=== PATIENT | female | born 1940 | race Caucasian/White ===

== ENCOUNTER 2017-07-28 11:56 | Day surgery (SDC) | payer MEDICARE, OTHER ==
[2017-07-28] MEDS ORDERED: Sodium Chloride 0.9% 5 ML Syringe FLUSH PRN (12:00)
[2017-07-28] MEDS ORDERED: Lactated Ringers 1,000 ML IV SCH (12:00)
[2017-07-28] MEDS ORDERED: Gatifloxacin 0.5% Ophth Soln 2.5 ML Bot EYELF SCH (12:00)
[2017-07-28] MEDS: Phenylephrine 10% Ophth Soln 5 ML Bot EYELF SCH ×3 (12:18→12:47)
[2017-07-28] MEDS: Cyclopentolate 1% Opth Soln 2 ML Bottle EYELF SCH ×3 (12:26→12:52)
[2017-07-28] MEDS ORDERED: Midazolam 1 MG/ML 2 ML SDV ONE (13:33)
[2017-07-28] MEDS ORDERED: fentaNYL 100 MCG/2 ML SDV IV ONE (13:39)
[2017-07-28] MEDS ORDERED: Midazolam 1 MG/ML 2 ML SDV IV ONE (13:39)
[2017-07-28] MEDS ORDERED: fentaNYL 100 MCG/2 ML SDV ONE (13:40)
[2017-07-28] MEDS ORDERED: Balanced Salt Solution Plus Ophth Irrig 500 ML Bottle IOCULAR ONE (13:47)
[2017-07-28] MEDS ORDERED: Balanced Salt Solution Ophth Irrig 15 ML Bottle EYELF ONE (13:47)
[2017-07-28] MEDS ORDERED: Water For Irrigation,Sterile 1,500 ML Container IRR ONE (13:47)
[2017-07-28] MEDS ORDERED: Carbachol 0.01% Intraocular 1.5 ML Vial EYELF ONE (13:48)
[2017-07-28] MEDS ORDERED: Hyaluronate Sodium 1% 0.85 ML Syringe IOCULAR ONE (13:49)
[2017-07-28] MEDS ORDERED: Dexamethasone/Neomycin/Polymyxin B Ophth Oint 3.5 GM Tube EYELF ONE (13:49)
--- NOTE | 2017-07-29 08:20 | OR ---
DATE OF SURGERY: 07/28/2017 SURGEON: Adam Holcomb MD PREOPERATIVE DIAGNOSIS: Cataract, left eye. POSTOPERATIVE DIAGNOSIS: Cataract, left eye. OPERATION PERFORMED: Phacoemulsification with posterior chamber lens insertion, left eye. FINDINGS: OPERATIVE PROCEDURE: The patient was taken to the operating room where appropriate anesthesia, sedation and monitoring were provided. The eye and eyelids were then prepped and draped in the usual sterile manner. A lid speculum was placed. A micro sharp blade was used to enter the anterior chamber inferior-temporally and through this site Healon was irrigated into the eye. Then using a 2.85 mm corneal blade an incision was made at the limbus temporally. Additional Healon was irrigated into the eye and then using a cystitome, the anterior capsulorrhexis was created. The lens nucleus was hydrodissected using a 27 gauge cannula and balanced salt solution. The phacoemulsification unit was introduced through the temporal site and the Srikanth spatula through the inferior temporal site. In so doing, the lens nucleus was phacoemulsified. The cortical fragments of the lens were removed using the irrigation aspiration unit. The posterior capsule was polished. Healon was irrigated into the eye. The posterior chamber lens was then inserted and rotated into position inside the capsular bag. The Healon was irrigated out of the eye. Miostat was irrigated into the eye and the pupil rounded nicely. A single interrupted 10-0 Nylon suture was placed through the temporal corneal incision site. Balanced salt solution was irrigated into the eye. The wound was tested and it was found to be appropriately tight. Maxitrol ointment was placed into the patient's left eye. The eyelids were closed and an eye patch and fair shield were placed. The patient left the operating room in good condition. /[id number]/MODL
== END 2017-07-28 15:16 | disposition home or self-care (01) ==
LOC: KA.SDS 11:56
PROVIDERS: ATTEND Ophthalmology
DX: H25.012 Cortical age-related cataract, left eye (principal); I10 Essential (primary) hypertension; E78.4 Other hyperlipidemia; M17.12 Unilateral primary osteoarthritis, left knee; E66.9 Obesity, unspecified; Z68.36 Body mass index [BMI] 36.0-36.9, adult; Z90.89 Acquired absence of other organs; Z90.710 Acquired absence of both cervix and uterus; Z98.890 Other specified postprocedural states; Z79.82 Long term (current) use of aspirin; Z79.899 Other long term (current) drug therapy; Z88.4 Allergy status to anesthetic agent; Z88.5 Allergy status to narcotic agent; Z88.6 Allergy status to analgesic agent; Z88.8 Allergy status to other drugs, medicaments and biological substances; Z91.041 Radiographic dye allergy status
CPT/HCPCS: 66984; A9270; J2250; J3010; J7120; 00142; C1780

== ENCOUNTER 2017-09-22 11:18 | Day surgery (SDC) | payer MEDICARE, OTHER ==
[~2017-09-22 11:18] MED LIST: Gatifloxacin 0.5% Ophth Soln 2.5 ML Bot EYERT SCH; Lactated Ringers 1,000 ML IV SCH; Sodium Chloride 0.9% 5 ML Syringe FLUSH PRN
[2017-09-22] MEDS: Cyclopentolate 1% Opth Soln 2 ML Bottle EYERT SCH ×3 (11:36→12:09)
[2017-09-22] MEDS ORDERED: Midazolam 1 MG/ML 2 ML SDV ONE (11:44)
[2017-09-22] MEDS ORDERED: fentaNYL 100 MCG/2 ML SDV ONE (11:44)
[2017-09-22] MEDS: Phenylephrine 10% Ophth Soln 5 ML Bot EYERT SCH ×3 (11:46→12:19)
[2017-09-22] MEDS ORDERED: fentaNYL 100 MCG/2 ML SDV IV ONE (12:45)
[2017-09-22] MEDS ORDERED: Midazolam 1 MG/ML 2 ML SDV IV ONE (12:45)
[2017-09-22] MEDS ORDERED: Water For Irrigation,Sterile 1,500 ML Container IRR ONE (13:01)
[2017-09-22] MEDS ORDERED: Balanced Salt Solution Plus Ophth Irrig 500 ML Bottle IOCULAR ONE (13:02)
[2017-09-22] MEDS ORDERED: Carbachol 0.01% Intraocular 1.5 ML Vial EYERT ONE (13:02)
[2017-09-22] MEDS ORDERED: EPINEPHrine 1 MG/ML SDV ONE (13:02)
[2017-09-22] MEDS ORDERED: Balanced Salt Solution Ophth Irrig 15 ML Bottle EYERT ONE (13:02)
[2017-09-22] MEDS ORDERED: Dexamethasone/Neomycin/Polymyxin B Ophth Oint 3.5 GM Tube EYERT ONE (13:03)
[2017-09-22] MEDS ORDERED: Tetracaine HCl/PF 0.5% 4 ML Bottle EYEBOTH ONE (13:03)
[2017-09-22] MEDS ORDERED: Hyaluronate Sodium 1% 0.85 ML Syringe IOCULAR ONE (13:03)
--- NOTE | 2017-09-23 08:46 | OR ---
DATE OF SURGERY: 09/22/2017 SURGEON: Adam Holcomb MD PREOPERATIVE DIAGNOSIS: Cataract, right eye. POSTOPERATIVE DIAGNOSIS: Cataract, right eye. OPERATION PERFORMED: Phacoemulsification with posterior chamber lens insertion, right eye. HISTORY: The patient is having more and more difficulty seeing to drive using the right eye. She has a combined-type cataract, also listed a senile. Her vision for the right eye is 20/50. FINDINGS: The patient was taken to the operating room where appropriate anesthesia, sedation and monitoring were provided. The eye and eyelids were then prepped and draped in the usual sterile manner. A lid speculum was placed. A micro sharp blade was used to enter the anterior chamber inside the limbus superior-temporally. Xylocaine was irrigated into the eye at this site. Healon was irrigated into the eye through this site. Then using a 2.85 mm corneal blade an entry was made into the anterior chamber just inside the limbus temporally. Healon was again irrigated into the eye. Then using a cystitome, the anterior capsulorrhexis was created. The lens nucleus was hydrodissected using a 27-gauge cannula and balanced salt solution. The phacoemulsification unit was introduced through the temporal site and the Srikanth spatula through the superior temporal site. In so doing, the lens nucleus was phacoemulsified. The cortical fragments of the lens were removed using the irrigation aspiration unit. The posterior capsule was polished. Healon was irrigated into the eye. The posterior chamber lens was inserted and rotated into position inside the capsular bag. The Healon was irrigated out of the eye. Miostat was irrigated into the eye and the pupil rounded nicely. A single interrupted 10-0 Nylon suture was placed through the temporal corneal incision site. Balanced salt solution was irrigated into the eye. The wound was tested and found to be tight. Maxitrol ointment was placed into the patient's right eye. The eyelids were closed and an eye patch and fair shield were placed. The patient left the operating room in good condition. /[id number]/MODL
== END 2017-09-22 13:45 | disposition home or self-care (01) ==
LOC: KA.SDS 11:18
PROVIDERS: ATTEND Ophthalmology
DX: H25.811 Combined forms of age-related cataract, right eye (principal); I10 Essential (primary) hypertension; E78.5 Hyperlipidemia, unspecified; E66.9 Obesity, unspecified; Z79.82 Long term (current) use of aspirin; Z79.899 Other long term (current) drug therapy; Z88.8 Allergy status to other drugs, medicaments and biological substances; Z91.041 Radiographic dye allergy status; Z68.30 Body mass index [BMI] 30.0-30.9, adult
CPT/HCPCS: 66984; A9270; C1780; J0171; J2250; J3010; J7120; 00142

== ENCOUNTER 2017-12-26 23:48 | Observation (INO) | payer MEDICARE, OTHER ==
[2017-12-27] MEDS ORDERED: Sodium Chloride 0.9% 5 ML Syringe FLUSH PRN (00:10)
[2017-12-27] MEDS ORDERED: Diltiazem 25 MG/5 ML SDV IVPUSH ONE ×2 (00:16→00:44)
--- NOTE | 2017-12-27 00:23 | EDM.PDOC ---
ED HPI GENERAL MEDICAL PROBLEM - General Chief Complaint: Cardiovascular Problem Stated Complaint: Irregular heart rate Time Seen by Provider: 12/27/17 00:05 Source of Information: Reports: Patient History Limitations: Reports: No Limitations - History of Present Illness INITIAL COMMENTS - FREE TEXT/NARRATIVE: Patient presents with palpitations that she noticed when she laid down in bed tonight. No fever, chest, arm, neck or jaw pain. She denies any history of A Fib, [place] or stents. She takes Diovan for blood pressure and years ago had been on Nadolol but it built up a toxicity in her system and it was stopped when her heart rate was 30. - Related Data Allergies Allergy/AdvReac Type Severity Reaction Status Date / Time celecoxib [From Celebrex] Allergy KIDNEY Verified 12/27/17 00:00 latex Allergy Blisters Verified 12/27/17 00:00 lidocaine [From Xylocaine] Allergy DECREASES Verified 12/27/17 00:00 BLOOD PRESSURE meperidine [From Demerol] Allergy Nausea and Verified 12/27/17 00:00 Vomiting nadolol [From Corgard] Allergy UNKNOWN Verified 12/27/17 00:00 contrast dye Allergy Confusion Uncoded 07/27/17 15:55 Home Meds: Home Meds Aspirin 325 mg PO DAILY 07/27/17 [History] Calcium Carbonate/Vitamin D3 [Calcium Carb 500 MG] 1 each PO DAILY 07/27/17 [ History] Cartilage/Collagen/Bor/Hyalur [Joint Health Tablet] 1 each PO DAILY 07/27/17 [ History] Cholecalciferol (Vitamin D3) [Cholecalciferol] 2,000 mg PO DAILY 07/27/17 [ History] Cyanocobalamin (Vitamin B-12) [Vitamin B-12] 250 mcg PO DAILY 07/27/17 [History] Furosemide [Lasix] 1 tab PO DAILY 07/27/17 [History] Ibuprofen/Diphenhydramine HCl [Advil Pm Liqui-Gels] 1 each PO BEDTIME 07/27/17 [ History] Lutein 6 mg PO DAILY 07/27/17 [History] Multivitamin with Minerals [Multiple Vitamin] 1 tab PO DAILY 07/27/17 [History] Napoleon-3 Fatty Acids [Napoleon-3] 2 cap PO DAILY 07/27/17 [History] Pravastatin Sodium [Pravastatin (Pravachol)] 40 mg PO DAILY 07/27/17 [History] Trolamine Salicylate [Arthricream] 90 gm TOP BID 07/27/17 [History] Ubidecarenone [Coenzyme Q10] 30 mg PO DAILY 07/27/17 [History] Valsartan [Diovan] 160 mg PO DAILY 07/27/17 [History] Past Medical History HEENT History: Reports: Cataract, Impaired Vision Cardiovascular History: Reports: High Cholesterol, Hypertension Gastrointestinal History: Reports: GERD Genitourinary History: Reports: Other (See Below) Other Genitourinary History: cyst on left kidney [employer] History: Reports: Musculoskeletal History: Reports: Arthritis Endocrine/Metabolic History: Reports: Obesity/BMI 30+ - Infectious Disease History Infectious Disease History: Reports: Measles, Mumps - Past Surgical History HEENT Surgical History: Reports: Cataract Surgery, Tonsillectomy Cardiovascular Surgical History: Reports: None GI Surgical History: Reports: Colonoscopy Female Surgical History: Reports: Hysterectomy Other Female Surgeries/Procedures: partial Endocrine Surgical History: Reports: None Musculoskeletal Surgical History: Reports: Arthroscopic Knee Social & Family History - Tobacco Use Smoking Status *Q: Never Smoker - Caffeine Use Caffeine Use: Reports: Coffee, Soda, Tea Other Caffeine Use: regular - Recreational Drug Use Recreational Drug Use: No ED ROS GENERAL - Review of Systems Review Of Systems: See Below Constitutional: Denies: Fever, Malaise, Weakness HEENT: Denies: Ear Pain, Throat Pain, Vision Change Respiratory: Denies: Shortness of Breath, Cough Cardiovascular: Denies: Chest Pain, Lightheadedness, Syncope Endocrine: Denies: Fatigue GI/Abdominal: Denies: Abdominal Pain, Nausea, Vomiting : Denies: Dysuria, Flank Pain, Frequency Musculoskeletal: Reports: Back Pain (she had a brief pain in the middle of the back earlier this evening but quickly resolved). Denies: Neck Pain, Shoulder Pain, Arm Pain Skin: Denies: Cyanosis, Jaundice, Mottled, Pallor, Diaphoresis Neurological: Denies: Confusion, Dizziness, Headache, Seizure, Syncope, Trouble Speaking, Difficulty Walking Psychiatric: Denies: Agitation, Anxiety, Confusion ED EXAM, GENERAL - Physical Exam Exam: See Below Exam Limited By: No Limitations General Appearance: Alert, WD/WN, No Apparent Distress Eye Exam: Bilateral Eye: EOMI, Normal Inspection, PERRL Ears: Normal External Exam, Hearing Grossly Normal Nose: Normal Inspection, No Blood Throat/Mouth: Normal Inspection, Normal Lips, Normal Voice, No Airway Compromise Head: Atraumatic, Normocephalic Neck: Normal Inspection, Supple, Full Range of Motion Respiratory/Chest: No Respiratory Distress, Lungs Clear, Normal Breath Sounds, No Accessory Muscle Use Cardiovascular: Normal Peripheral Pulses, No Edema, No Gallop, Tachycardia, Irregularly Irregular Peripheral Pulses: 2+: Carotid (L), Carotid (R), Radial (L), Radial (R), Dorsalis Pedis (L), Dorsalis Pedis (R) GI/Abdominal: Normal Bowel Sounds, Soft, Non-Tender, No Organomegaly, No Distention Back Exam: No: CVA Tenderness (L), CVA Tenderness (R) Extremities: Normal Inspection, Normal Range of Motion, Non-Tender, No Pedal Edema Neurological: Alert, Oriented, Normal Cognition, No Motor/Sensory Deficits Psychiatric: Normal Affect, Normal Mood Skin Exam: Warm, Dry, Intact, Normal Color, No Rash Course - Vital Signs Last Recorded V/S: Last Vital Signs Temp 96.3 F 12/27/17 02:23 Pulse 97 12/27/17 02:23 Resp 18 12/27/17 02:23 BP 123/80 12/27/17 02:23 Pulse Ox 94 L 12/27/17 02:23 - Orders/Labs/Meds Orders: Active Orders 24 hr Category Date Time Status Patient Status Manage Transfer [TRANSFER] Routine ADT 12/27/17 02:21 Ordered Patient Status [ADT] AM ADT 12/27/17 05:11 Ordered Labs: Laboratory Tests 12/27/17 12/27/17 Range/Units 00:10 00:10 WBC 11.5 H (5.0-10.0) 10^3/uL RBC 5.30 (3.80-5.50) 10^6/uL Hgb 15.9 (12.0-16.0) g/dL Hct 48.6 H (37.0-47.0) % MCV 91.7 (82.0-92.0) fL MCH 30.1 (27.0-31.0) pg MCHC 32.8 (32.0-36.0) g/dL RDW 12.3 (11.5-14.5) % Plt Count 270 (150-300) 10^3/uL MPV 7.8 (7.4-10.4) fL Neut % (Auto) 51.7 (50.0-70.0) % Lymph % (Auto) 33.1 (20.0-40.0) % Atlantic % (Auto) 8.9 H (2.0-8.0) % Eos % (Auto) 2.6 (1.0-3.0) % Baso % (Auto) 3.7 H (0.0-1.0) % Neut # (Auto) 6.0 (2.5-7.0) 10^3/uL Lymph # (Auto) 3.8 (1.0-4.0) 10^3/uL Atlantic # (Auto) 1.0 H (0.1-0.8) 10^3/uL Eos # (Auto) 0.3 (0.1-0.3) 10^3/uL Baso # (Auto) 0.4 H (0.0-0.1) 10^3/uL Sodium 142 (136-145) mmol/L Potassium 3.9 (3.3-5.3) mmol/L Chloride 105 (98-115) mmol/L Carbon Dioxide 26.5 (21.0-32.0) mmol/L BUN 21 (6-25) mg/dL Creatinine 0.78 (0.51-1.17) mg/dL Est Cr Clr Drug Dosing 47.03 mL/min Estimated GFR (MDRD) > 60 mL/min Glucose 108 (70-110) mg/dL Calcium 9.6 (8.7-10.3) mg/dL Meds: Medications Discontinued Medications Generic Name Dose Route Start Last Admin Trade Name Freq PRN Reason Stop Dose Admin Diltiazem HCl 20 mg 12/27/17 00:16 12/27/17 00:24 Diltiazem IVPUSH 12/27/17 00:17 20 mg ONETIME ONE Administration Diltiazem HCl 25 mg 12/27/17 00:44 12/27/17 00:45 Diltiazem IVPUSH 12/27/17 00:45 25 mg ONETIME ONE Administration Sodium Chloride 1,000 mls @ 999 mls/hr 12/27/17 00:48 12/27/17 00:53 Normal Saline IV 12/27/17 01:48 999 mls/hr .BOLUS ONE Administration Metoprolol Tartrate 5 mg 12/27/17 01:20 12/27/17 01:23 Lopressor IVPUSH 12/27/17 01:21 5 mg ONETIME ONE Administration Metoprolol Tartrate Confirm 12/27/17 01:21 12/27/17 01:38 Lopressor Administered 12/27/17 01:22 Not Given Dose 5 mg .ROUTE .STK-MED ONE Metoprolol Tartrate 5 mg 12/27/17 01:38 12/27/17 01:41 Lopressor IVPUSH 12/27/17 01:39 5 mg ONETIME ONE Administration Metoprolol Tartrate 5 mg 12/27/17 01:55 12/27/17 01:59 Lopressor IVPUSH 12/27/17 01:56 5 mg ONETIME ONE Administration Metoprolol Tartrate 25 mg 12/27/17 02:17 12/27/17 02:18 Lopressor PO 12/27/17 02:18 25 mg ONETIME ONE Administration Metoprolol Tartrate Confirm 12/27/17 02:16 Lopressor Administered 12/27/17 02:17 Dose 50 mg .ROUTE .STK-MED ONE - Re-Assessments/Exams Free Text/Narrative Re-Assessment/Exam: 12/27/17 00:44 Heart rate was about 150 when we administered Diltiazem 20 mg IVP. Within a couple of minutes it came down to 120-135 but then stabilized 135-140. After 15 minutes we are now giving second dose at 25 mg IVP. 12/27/17 01:21 Nearly 40 minutes after second dose of Diltiazem the heart rate is still in the 125-140 range. IV dosing is onset within 3 minutes so we should be at full effect. The goal is to get rate into the 80's. Blood pressure is still 150's systolic. Will give Metoprolol 5 mg IVP now. 12/27/17 02:24 Heart rate came down to 80's to 120's after 3 doses of Metoprolol 5 mg IVP. Blood pressure down nicely as well. Blood pressure has dropped from 204/67 to 122/66 and HR 156 to 97. Patient is feeling better. Discussed case with ERIKA Garcia who accepted for observation admission. Patient remained stable throughout ER course. Departure - Departure Time of Disposition: 02:17 Disposition: Refer to Observation Condition: Good Clinical Impression: New onset atrial fibrillation, Atrial fibrillation with RVR Forms: ED Department Discharge - My Orders Last 24 Hours: My Active Orders 12/27/17 02:21 Patient Status Manage Transfer [TRANSFER] Routine 12/27/17 05:11 Patient Status [ADT] AM - Assessment/Plan Last 24 Hours: My Active Orders 12/27/17 02:21 Patient Status Manage Transfer [TRANSFER] Routine 12/27/17 05:11 Patient Status [ADT] AM
[2017-12-27 00:44] LABS: CHLORIDE,CL 105 mmol/L (98-115); SODIUM,NA 142 mmol/L (136-145)
[2017-12-27] MEDS ORDERED: Sodium Chloride 0.9% 1,000 ML IV ONE (00:48)
[2017-12-27] MEDS ORDERED: Metoprolol Tartrate 5 MG/5 ML SDV IVPUSH ONE ×3 (01:20→01:55)
[2017-12-27] MEDS ORDERED: Metoprolol Tartrate 5 MG/5 ML SDV ONE (01:21)
[2017-12-27] MEDS ORDERED: Metoprolol Tartrate 50 MG Tab ONE (02:16)
[2017-12-27] MEDS ORDERED: Metoprolol Tartrate 25 MG Tab PO ONE (02:17)
[2017-12-27] MEDS ORDERED: Warfarin 5 MG Tab PO ONE (10:35)
--- NOTE | 2017-12-27 11:01 | PCM.SN ---
- Free Text/Narrative Note: This is a history and physical/discharge summary. Diagnosis; new onset of atrial fibrillation with RVR. Admit/discharge date. 12/27/17. Observation status. Brief history/hospital summary/course of observation Patient is a 77-year-old female patient who presented to the ER during the night stating that she was experiencing palpitations. The symptoms began when she was laying down for bed. At the time the symptoms presented she had no chest discomfort, shortness of breath, shoulder, neck or jaw pain. Symptoms persisted without resolution therefore she presented to the ED. She reports that several years ago she had been placed on Nadolol however she reported that over time she built up a toxicity and developed bradycardia. During the ED course patient did receive diltiazem 20 mg IVP 2. Rate remained 125-140 bpm. Metoprolol 5 mg IVP was given 3. Rate then decreased to 80s to 120s. Blood pressure had initially been elevated at 204/67 with the previous treatment it did range at 122/66. Patient was then admitted for observation. This morning patient did convert to normal sinus rhythm at approximately 8:15 AM. Heart rate ranged from 62-69 bpm. She denies any chest pain, shortness of breath, neck, jaw , arm discomfort. She has had no nausea or vomiting. Past medical history; cataracts, hypercholesterolemia, hypertension, GERD, left kidney cyst, arthritis and obesity Past surgical history; cataract surgery, tonsillectomy, hysterectomy, arthroscopic knee surgery and colonoscopy. Social history; no smoking. Family history; noncontributory. Labs and diagnostics. CBC and panel were obtained in the ED. Patient had been placed on telemetry. Converted to normal sinus rhythm at approximately 8:15 AM. TSH ordered with results pending. Home medications Aspirin 325 daily, calcium carbonate 1 daily, joint health tablet 1 tablet daily , vitamin D 2000 mg daily, vitamin B12 250 g daily, Lasix 1 tablet daily, ibuprofen at at bedtime when necessary, lutein 6 mg daily, multiple vitamin 1 tablet daily, omega-3 -2 capsules daily, pravastatin 40 mg daily, topical trolamine salicylate twice a day, coenzyme Q10 30 mg daily and Diovan 160 daily. Patient will be sent home on Coumadin 5 mg daily and metoprolol tartrate 25 mg twice a day. Review of systems Constitutional; no weight loss, fever, chills H EENT: no complaints of headache, earache or sore throat Respiratory; no complaints of shortness of breath, cough or congestion Cardiovascular; new onset atrial fib with RVR. No chest pain, palpitations. G no complaints of nausea or vomiting Musculoskeletal: no complaints of muscle or joint pain. Physical exam H EENT: Head is normocephalic, conjunctiva clear, no nasal drainage. Respiratory; lung sounds clear to auscultatio. Cardiovascular; heart rate and rhythm is irregularly irregular at 62-69 bpm Abdomen; soft, nontender, bowel sounds present Extremities; no lower extremity edema, pedal pulses present. Assessment and plan/discharge plan New-onset atrial fibrillation with RVR, hypertension, hypercholesterolemia, GERD. Patient will resume her home medications as previously stated. Coumadin 5 mg daily will be initiated. Had a discussion with the patient in regards to alternative anticoagulation medication such as Pradaxa or Eliquis. She declines usage of the medications stating she had a friend who recently from using the medicine. She is reluctant to consider Coumadin but does agree to start the medication and will further discuss on her clinical follow-up. Patient was advised to phone the clinic Thursday a.m. to schedule reevaluation and further discuss medication management. Consideration for outpatient cardiac echo.
[2017-12-27] MEDS ORDERED: Metoprolol Tartrate 25 MG Tab PO SCH (21:00)
== END 2017-12-27 10:51 | disposition home or self-care (01) ==
LOC: KA.ED 23:48 → SUPCPDRO 23:48 → KA.MS 12-27 02:20
PROVIDERS: ADMIT Physician Assistant Medical; ATTEND Physician Assistant Medical
DX: I48.91 Unspecified atrial fibrillation (principal); I10 Essential (primary) hypertension; E78.00 Pure hypercholesterolemia, unspecified; K21.9 Gastro-esophageal reflux disease without esophagitis; E66.9 Obesity, unspecified; Z79.82 Long term (current) use of aspirin; Z79.01 Long term (current) use of anticoagulants; Z79.899 Other long term (current) drug therapy; Z88.1 Allergy status to other antibiotic agents; Z91.040 Latex allergy status; Z91.041 Radiographic dye allergy status; Z88.8 Allergy status to other drugs, medicaments and biological substances; Z68.30 Body mass index [BMI] 30.0-30.9, adult
CPT/HCPCS: 36415; 80048; 84443; 85025; 93005; 96361; 96374; 96375; 99285; A9270 ×3; J3490 ×2; J7030